=== PATIENT | male | born 1960 | race Caucasian/White ===

== ENCOUNTER 2017-05-24 10:59 | Emergency (ER) | payer BC ==
[~2017-05-24] VITALS: Ht 180.3 cm; Wt 83.9 kg
[2017-05-24 11:09] VITALS: BP_SYST 144
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
--- NOTE | 2017-05-24 11:22 | NUR ---
Dr. Barclay at bedside to assess pt.
--- NOTE | 2017-05-24 12:30 | NUR ---
RETURNED FROM RADIOLOGY, PLACED BACK TO BED #4
--- NOTE | 2017-05-24 13:19 | NUR ---
Patient refused sling. States he is still having 7/10 left shoulder and hip pain, with leg cramps. Dr. Barclay aware, to bedside to revaluate patient.
[2017-05-24 13:48] VITALS: BP_SYST 112
--- NOTE | 2017-05-24 13:48 | NUR ---
Patient given written and verbal discharge instructions and verbalizes understanding. ER MD discussed with patient the results and treatment provided. Patient in stable condition. ID arm band removed. Rx of motrin given. Patient educated on pain management and to follow up with PMD. Pain Scale 2. Opportunity for questions provided and answered.
--- NOTE | 2017-05-25 09:43 | NUR ---
Contacted patient regarding radiology dicrepancy or pneumothorax. Patient states that he will return to ER within 30 min.
[2017-05-25] MEDS ORDERED: LIP10 PO (11:41)
== END 2017-05-24 13:48 | disposition home or self-care (01) ==
LOC: SED 10:59
DX: S43.492A Other sprain of left shoulder joint, initial encounter (principal); S20.212A Contusion of left front wall of thorax, initial encounter; S70.02XA Contusion of left hip, initial encounter; V19.3XXA Pedal cyclist (driver) (passenger) injured in unspecified nontraffic accident, initial encounter; Y93.89 Activity, other specified; Y92.89 Other specified places as the place of occurrence of the external cause; Y99.8 Other external cause status
CPT/HCPCS: 71010; 71100; 73030; 73060-TC; 73090; 99284

== ENCOUNTER 2017-05-25 09:58 | Inpatient (IN) | payer BC ==
[2017-05-25] VITALS (12 sets, daily range): BP systolic 120–145
[~2017-05-25] VITALS: Ht 180.3 cm; Wt 83.9 kg
--- NOTE | 2017-05-25 10:14 | NUR ---
Patient to ER bed 3 to gown for evaluation. Side rails up. Report given to D[address] L[address].
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
--- NOTE | 2017-05-25 10:31 | NUR ---
Dr. Quarles at bedside examining patient, updated on patient condition.
[2017-05-25] MEDS ORDERED: PROPOFOL DRIP 100 ML IV ONE (11:15)
[2017-05-25] MEDS ORDERED: LIP10 PO (11:41)
[2017-05-25] MEDS ORDERED: LIDOCAINE 1% 10 MG/ML, 20 ML MDV INJ ONE (11:45)
[2017-05-25 11:56] LABS: BASOPHILS % (AUTO) 0.3 % (0.0-2.0); EOSINOPHILS % (AUTO) 0.5 % (0.0-4.0); HEMATOCRIT 41.7 % (36-54); HEMOGLOBIN 13.9 g/dL (14.0-18.0); LYMPHOCYTES # (AUTO) 1.4 K/uL (1.0-5.5); LYMPHOCYTES % (AUTO) 19.4 % (20.5-51.5); MEAN CORPUSCULAR HEMOGLOBIN 33 pg (27-31); MEAN CORPUSCULAR HGB CONC 33 % (32-36); MEAN CORPUSCULAR VOLUME 99 fL (79.0-98.0); MONOCYTES # (AUTO) 0.7 K/uL (0.0-1.0); NEUTROPHILS # (AUTO) 5.1 K/uL (1.8-7.7); NEUTROPHILS % (AUTO) 70.8 % (40.0-70.0); PLATELET COUNT (AUTO) 174 K/uL (130-430); RED BLOOD CELL COUNT(AUTO) 4.21 MIL/uL (4.2-6.2); RED CELL DISTRIBUTION WIDTH 11.5 % (9.0-15.0); WHITE BLOOD COUNT (AUTO) 7.2 K/uL (4.8-10.8)
[2017-05-25 12:00] LABS: CALCIUM 9.4 mg/dL (8.4-11.0); CREATININE 0.85 mg/dL (0.55-1.30); POTASSIUM 3.9 mmol/L (3.5-5.1)
--- NOTE | 2017-05-25 12:00 | NUR ---
Medication reconciliation completed with information provided by patient. Any prior medication reconciliation on file was reviewed and corrected.
[2017-05-25 12:05] LABS: ALBUMIN 4.4 g/dL (3.4-4.8); TOTAL BILIRUBIN 0.9 mg/dL (0.0-1.0)
--- NOTE | 2017-05-25 12:30 | NUR ---
Dr. Quarles at bedside chest tube insertion. Patient tolerated well. No signs of distress, vss noted.
[2017-05-25] MEDS ORDERED: ONDANSETRON HCL 4 MG/2 ML VIAL IVP ONE (13:00)
[2017-05-25] MEDS ORDERED: HYDROmorphone 1 MG INJ. 1 MG/ML AMPUL IVP ONE (13:00)
[2017-05-25] MEDS ORDERED: IPRATROPIUM BROM 0.5 MG/2.5 ML VIAL.NEB (ATROVENT) INH PRN (13:15)
[2017-05-25] MEDS ORDERED: ONDANSETRON HCL 4 MG/2 ML VIAL IVP PRN (13:15)
[2017-05-25] MEDS ORDERED: ALBUTEROL SULFATE 0.083% 2.5 MG/3 ML VIAL.NEB INH PRN (13:15)
--- NOTE | 2017-05-25 13:21 | NUR ---
Radiology at bedside.
--- NOTE | 2017-05-25 13:23 | NUR ---
Patient resting quietly. No acute distress noted. Vital signs within normal range.
--- NOTE | 2017-05-25 14:41 | NUR ---
consult for dr. spencer called spoke to juan dialed [phone]
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
[2017-05-25] MEDS: HYDROmorphone 1 MG INJ. 1 MG/ML AMPUL IVP PRN ×4 (14:57→23:08)
--- NOTE | 2017-05-25 15:00 | NUR ---
Patient will be admitted to care of Dr. Houston. Admitted to ICU unit. Will go to room 7. Belongings list completed. Summary report printed. Report will be given at bedside. Transfer to ICU via ACLS protocol. Licensed nurse present. IV present no signs or symptoms of infiltration.
[2017-05-25] MEDS: ALBUTEROL SULFATE 0.083% 2.5 MG/3 ML VIAL.NEB INH SCH ×3 (15:26→23:00)
[2017-05-25] MEDS: IPRATROPIUM BROM 0.5 MG/2.5 ML VIAL.NEB (ATROVENT) INH SCH ×3 (15:26→23:00)
--- NOTE | 2017-05-25 15:30 | NUR ---
C/O PAIN C/O PAIN LEFT CHEST AREA, MEDICATED WITH DILAUDID. HOB ELEVATED FOR COMFORT.
--- NOTE | 2017-05-25 16:00 | NUR ---
RESTING RESTING WITH EYES CLOSED, NO DISTRESS.
[2017-05-25] MEDS ORDERED: HYDROmorphone 1 MG INJ. 1 MG/ML AMPUL IVP PRN (16:45)
--- NOTE | 2017-05-25 17:00 | NUR ---
AWAKE AWAKE, ALERT. COMPLAINING OF PAIN AGAIN. DR. GARSIA WAS CALLED REGARDING INADEQUATE PAIN CONTROL, ORDERS GIVEN.
--- NOTE | 2017-05-25 17:15 | NUR ---
DR. GILBERT HUNT EXAMINED AND ORDERED. TOLD PT HE MIGHT BE HERE 3-4 DAYS. INFORMED THAT PT WAS HAVING PAIN AGAIN, BUT MEDICATION WAS NOT DUE - NEW ORDERS RECEIVED.
--- NOTE | 2017-05-25 18:30 | NUR ---
AT BEDSIDE AT BEDSIDE - BROUGHT FOOD FOR PT. PT C/O PAIN AGAIN, MEDICATED WITH TORADOL.
[2017-05-25] MEDS: KETOROLAC TROMETHAMINE 15 MG VIAL IVP PRN (18:38)
--- NOTE | 2017-05-25 19:15 | NUR ---
REPORT REPORT GIVEN TO ONCOMING SHIFT.
--- NOTE | 2017-05-25 19:30 | NUR ---
TRANSFER OF CARE Received report from AM shift RN via SB[facility]. AAOX4 with at bedside. C/O pain on the left chest. Chest tube in place and secured on the left chest, no leak and drainage noted. IV on the left AC 22g patent with blood return and no infiltration noted. Safety precaution identified, HOB elevated with bed in lowest position. Call light within reach. Will continue to monitor Pt and give PRN pain medication as per MD order.
[2017-05-26] VITALS (17 sets, daily range): BP systolic 120–141
--- NOTE | 2017-05-26 | NUR ---
NOTE Pt is watching TV. N o acute distress at this time. Will continue to monitor. Addendum: 05/26/17 at 0325 by Michael Keller RN NOTE Pt is watching TV. No acute distress at this time. Will continue to monitor.
[2017-05-26] MEDS: HYDROmorphone 1 MG INJ. 1 MG/ML AMPUL IVP PRN ×7 (02:52→21:45)
--- NOTE | 2017-05-26 02:52 | NUR ---
PAIN Patient complaining of pain on the chest tube site. Gave Dilaudid as per MD order. Will continue to monitor Pt.
[2017-05-26] MEDS: ALBUTEROL SULFATE 0.083% 2.5 MG/3 ML VIAL.NEB INH SCH ×5 (03:00→23:00)
[2017-05-26] MEDS: IPRATROPIUM BROM 0.5 MG/2.5 ML VIAL.NEB (ATROVENT) INH SCH ×5 (03:00→23:00)
--- NOTE | 2017-05-26 06:30 | NUR ---
PAIN Patient complaining of pain on the chest tube site. Gave Dilaudid as per MD order. Will continue to monitor Pt.
[2017-05-26 06:44] LABS: BASOPHILS % (AUTO) 0.2 % (0.0-2.0); EOSINOPHILS % (AUTO) 0.3 % (0.0-4.0); HEMATOCRIT 38.8 % (36-54); HEMOGLOBIN 13.2 g/dL (14.0-18.0); LYMPHOCYTES # (AUTO) 1.3 K/uL (1.0-5.5); LYMPHOCYTES % (AUTO) 15.1 % (20.5-51.5); MEAN CORPUSCULAR HEMOGLOBIN 34 pg (27-31); MEAN CORPUSCULAR HGB CONC 34 % (32-36); MEAN CORPUSCULAR VOLUME 99 fL (79.0-98.0); MONOCYTES # (AUTO) 0.7 K/uL (0.0-1.0); NEUTROPHILS # (AUTO) 6.5 K/uL (1.8-7.7); NEUTROPHILS % (AUTO) 76.4 % (40.0-70.0); PLATELET COUNT (AUTO) 166 K/uL (130-430); RED CELL DISTRIBUTION WIDTH 11.4 % (9.0-15.0); WHITE BLOOD COUNT (AUTO) 8.5 K/uL (4.8-10.8)
--- NOTE | 2017-05-26 07:18 | NUR ---
ENDORSEMENT Gave report to oncoming shift RN.
--- NOTE | 2017-05-26 08:00 | NUR ---
ASSUMPTION OF CARE: RECEIVED PT A/A/OX4, DX:INADEQUATE VENTILATION, R/T PNEUMOTHORAX, CHEST TUBE INSERTION TO LEFT CHEST WALL, PATENT, WITH BUBBLING, LEFT UPPER LOBE BREATH SOUNDS ARE DIMINISHED, BREATHING UNLABORED, AFEBRILE, IV SITE INTACT, PATENT, NO REDNESS OR SWELLING, ORIENTED TO UNIT, CALL LIGHT PLACED WITHIN REACH, WILL CONT' TO MONITOR AND ASSESS.
--- NOTE | 2017-05-26 08:30 | NUR ---
VISIT: AT BEDSIDE FOR ASSESSMENT OF PT, NEW ORDERS GIVEN, WILL CONT' TO MONITOR AND ASSESS.
--- NOTE | 2017-05-26 09:30 | NUR ---
VISIT: AT BEDSIDE FOR ASSESSMENT OF PT, NEW ORDERS GIVEN, WILL CONT' TO MONITOR AND ASSESS.
[2017-05-26] MEDS ORDERED: ENOXAPARIN SODIUM 40 MG/0.4 ML SYRINGE SUBCUT SCH (09:45)
[2017-05-26] MEDS ORDERED: ENOXAPARIN SODIUM 40 MG/0.4 ML SYRINGE SUBCUT ONE (11:15)
--- NOTE | 2017-05-26 12:44 | NUR ---
TRANSFER RECEIVED PT FROM ICU AAOX4, AT BEDSIDE. CHEST TUBE TO LT CHEST WALL CONNECTED TO LOW SUCTION WITH GOOD SEAL NOTED. TOLERATING ON 2L NC, NO SOB NOTED. PT STATES PAIN IS 4/10 AT THIS TIME, WHICH IS TOLERABLE FOR HIM. PT ORIENTED TO ROOM AND UNIT. BED IN LOWEST POSITION WITH SIDE RAILS UP X2 AND CALL LIGHT WITHIN REACH. ENCOURAGED TO USE CALL LIGHT FOR ASSISTANCE. VERBALIZED UNDERSTANDING.
--- NOTE | 2017-05-26 12:45 | NUR ---
TRANSFER: PT TRANSFERRED TO [facility] RM#102-A, REPORT GIVEN TO NURSE APOLLO RN, FAMILY NOTIFIED, ACCOMPANIED AT BEDSIDE, WILL CONT' WITH PLAN OF CARE.
[2017-05-26] MEDS: KETOROLAC TROMETHAMINE 15 MG VIAL IVP PRN (13:15)
--- NOTE | 2017-05-26 14:31 | NUR ---
ROUNDS PT SITTING UP IN BED IN NO ACUTE DISTRESS. CT TO LT CHEST WALL WITH GOOD SEAL, (+) BUBBLING NOTED. PT DENIES ANY SOB. STATES PAIN IS 5/10 BUT DOES NOT WANT DILAUDID AT THIS TIME. CALL LIGHT WITHIN REACH. ENCOURAGED TO USE CALL LIGHT FOR ASSISTANCE. VERBALIZED UNDERSTANDING.
--- NOTE | 2017-05-26 15:46 | NUR ---
ROUNDS PT SITTING UP IN BED WATCHING TV. MEDICATED FOR PAIN 05/07. CT TO LEFT CHEST WALL WITH BUBBLING NOTED. WILL CONTINUE TO MONITOR
--- NOTE | 2017-05-26 18:29 | NUR ---
CLOSING NOTE PT LYING IN BED WATCHING TV. STATES PAIN IS 4/10 AT THIS TIME BUT HE DOES NOT WANT ANY PAIN MEDICATION. CT TO LEFT CHEST WALL WITH (+) BUBBLING NOTED. NO SOB NOTED ON O2 2LNC. CALL LIGHT WITHIN REACH. PT ENCOURAGED TO USE CALL LIGHT FOR ASSISTANCE. WILL ENDORSE TO NOC SHIFT
--- NOTE | 2017-05-26 19:34 | NUR ---
PM NOTES PT SITTING UP IN BED, PAIN MEDICATION GIVEN FOR SEVERE PAIN NEAR CHEST TUBE SITE. CHEST TUBE SITE ASSESSED, NO AIR LEAK. UPDATED PT WITH PLAN OF CARE, REMINDED PT TO CALL FOR ASSISTANCE, PT STATED HE WILL. BED IN LOW POSITION, CALL LIGHT WITHIN REACH.
--- NOTE | 2017-05-26 21:45 | NUR ---
pain Dilaudid 1mg IVP administered for severe pain. educated pt on possible side effects. will continue to monitor. fall risk precautions in place, call light within reach.
[2017-05-27] MEDS: HYDROmorphone 1 MG INJ. 1 MG/ML AMPUL IVP PRN (01:16)
--- NOTE | 2017-05-27 01:16 | NUR ---
pain pt complained of severe pain near chest tube, pain medication administered by ARIANA Arevalo. pt aware to call for assistance.
[2017-05-27] MEDS: IPRATROPIUM BROM 0.5 MG/2.5 ML VIAL.NEB (ATROVENT) INH SCH ×5 (03:00→19:50)
[2017-05-27] MEDS: ALBUTEROL SULFATE 0.083% 2.5 MG/3 ML VIAL.NEB INH SCH ×5 (03:00→19:49)
--- NOTE | 2017-05-27 03:41 | NUR ---
watching tv pt watching tv, brought pt a warm tea. all needs being met. bed in low position, call light within reach.
[2017-05-27 04:37] VITALS: BP_SYST 134
[2017-05-27] MEDS: KETOROLAC TROMETHAMINE 15 MG VIAL IVP PRN ×3 (06:22→19:53)
--- NOTE | 2017-05-27 06:46 | NUR ---
pain/closing notes pt received Toradol IVP for moderate pain. reminded pt to call for assistance, pt stated he will. all needs met throughout shift. will endorse care to oncoming nurse, fall risk precautions in place, call light within reach.
[2017-05-27 07:31] LABS: BASOPHILS % (AUTO) 0.5 % (0.0-2.0); EOSINOPHILS # (AUTO) 0.1 K/uL (0.0-0.4); EOSINOPHILS % (AUTO) 1.8 % (0.0-4.0); HEMATOCRIT 36.9 % (36-54); HEMOGLOBIN 12.6 g/dL (14.0-18.0); LYMPHOCYTES # (AUTO) 1.7 K/uL (1.0-5.5); LYMPHOCYTES % (AUTO) 23.1 % (20.5-51.5); MEAN CORPUSCULAR HEMOGLOBIN 34 pg (27-31); MEAN CORPUSCULAR HGB CONC 34 % (32-36); MEAN CORPUSCULAR VOLUME 98 fL (79.0-98.0); MONOCYTES # (AUTO) 0.7 K/uL (0.0-1.0); MONOCYTES % (AUTO) 9.4 % (1.7-9.3); NEUTROPHILS # (AUTO) 4.8 K/uL (1.8-7.7); NEUTROPHILS % (AUTO) 65.2 % (40.0-70.0); PLATELET COUNT (AUTO) 173 K/uL (130-430); RED BLOOD CELL COUNT(AUTO) 3.76 MIL/uL (4.2-6.2); RED CELL DISTRIBUTION WIDTH 11.2 % (9.0-15.0); WHITE BLOOD COUNT (AUTO) 7.3 K/uL (4.8-10.8)
[2017-05-27 08:00] VITALS: BP_SYST 138
--- NOTE | 2017-05-27 08:00 | NUR ---
OPENING NOTE PATIENT NOTED TO HAVE DISCONNECTED HIMSELF FROM WALL SUCTION AND IS AMBULATING TO RESTROOM WHILE HOLDING HIS CHEST TUBE EQUIPMENT. WHO IS AN RN AT ANOTHER FACILITY IS HELPING HIM.
[2017-05-27] MEDS: ENOXAPARIN SODIUM 40 MG/0.4 ML SYRINGE SUBCUT SCH (09:11)
--- NOTE | 2017-05-27 10:00 | NUR ---
PATIENT IS RESTING COMFORTABLY. REPORTS MILD PAIN, HOWEVER STATES BECAUSE HE IS UNABLE TO HAVE A BM HE DOES NOT WANT TO CONTINUE TAKING NARCOTICS. PATIENT IS NOT IN GOWN AND CHEST TUBE AND BRUISING TO LEFT CHEST WALL/ABDOMEN IS OBVIOUS. STEADY AMBULATION
--- NOTE | 2017-05-27 11:00 | NUR ---
DR HUNT IN TO SEE PATIENT, CHEST TUBE TO GRAVITY, OOTA, EXPLAINED TO PATIENT IMPORTANCE OF REPORTING ANY INCREASE IN DISCOMFORT, ANXIETY OR SHORTNESS OF BREATH IMMEDIATELY. PER DR HUNT'S ORDERS STAT CXR AND CALL HER W RESULTS IF PATIENT BECOMES SOB.
[2017-05-27 12:34] VITALS: BP_SYST 138
--- NOTE | 2017-05-27 13:00 | NUR ---
PATIENT MEDICATED WITH TORADOL FOR PAIN.
[2017-05-27 16:36] VITALS: BP_SYST 130
--- NOTE | 2017-05-27 19:15 | NUR ---
CHANGE OF SHIFT: pt. not in the room on change of shift. pt. ambulating with his .
[2017-05-27 19:59] VITALS: BP_SYST 141
--- NOTE | 2017-05-27 20:00 | NUR ---
NOTES: Addendum: 05/27/17 at 2349 by Kia Dozier RN pt. in bed already, on high fowlers position, left chest tube to pleur evac with some serous drainage. chest tube site dressing intact.pt. instructed on deep breathing exercise. medicated with Toradol for c/o pain on left chest. on room air.
--- NOTE | 2017-05-27 21:33 | NUR ---
NOTES: pt. resting when checked, on high fowlers position.noted relief from pain. Addendum: 05/28/17 at 0424 by Kia Dozier RN pt. skin on left lower side around the flank area with big bruise and on the lateral upper thigh.
--- NOTE | 2017-05-27 23:49 | NUR ---
NOTES: pt. resting comfortably. in no acute distress.
[2017-05-28] VITALS (7 sets, daily range): BP systolic 135–145
--- NOTE | 2017-05-28 01:30 | NUR ---
NOTES: pt. awakened, wants pain med, offered other pain med but wants Toradol instead, not quite due and pt. informed.
[2017-05-28] MEDS: KETOROLAC TROMETHAMINE 15 MG VIAL IVP PRN ×2 (02:03→08:51)
--- NOTE | 2017-05-28 02:05 | NUR ---
NOTES: pt. medicated for c/o left side chest pain , chest tube site. keep HOB elevated. been to the restroom 2x per pt.
--- NOTE | 2017-05-28 02:30 | NUR ---
NOTES: checked pt. noted some relief, watching TV.
--- NOTE | 2017-05-28 04:30 | NUR ---
NOTES: condition unchanged, been sleeping on sitting position in bed.
--- NOTE | 2017-05-28 06:30 | NUR ---
CLOSING NOTES: pt. already awake watching TV, no complaints manifested. chest tube drained @ 50 cc serous fluid. CXR was just done. needs further observation. call light within reach.
[2017-05-28] MEDS: ALBUTEROL SULFATE 0.083% 2.5 MG/3 ML VIAL.NEB INH SCH ×3 (07:20→15:00)
[2017-05-28] MEDS: IPRATROPIUM BROM 0.5 MG/2.5 ML VIAL.NEB (ATROVENT) INH SCH ×3 (07:20→15:00)
--- NOTE | 2017-05-28 07:20 | NUR ---
endorsed pt. to incoming shift with nurse Petit. condition stable, left chest tube intact.
--- NOTE | 2017-05-28 08:10 | NUR ---
Opening Note Report received form [address]. Patient is in stable condition and is currently resting in bed. IV is on the LAC 20g currently saline locked. Chest tube is on the left chest and is to gravity. Call light is within reach and bed is in low position. Will continue to monitor.
[2017-05-28] MEDS: ENOXAPARIN SODIUM 40 MG/0.4 ML SYRINGE SUBCUT SCH (08:55)
--- NOTE | 2017-05-28 10:20 | NUR ---
Rounds Patient is resting in bed. call light is within reach.
--- NOTE | 2017-05-28 12:30 | NUR ---
Rounds Patient is resting in bed. No signs of distress noted.
--- NOTE | 2017-05-28 14:30 | NUR ---
RN Noted Chest x-ray was done. Will follow up with the results.
--- NOTE | 2017-05-28 15:20 | NUR ---
PAGED PAGED LANE CALDERON AT [phone] SPOKE WITH EXCHANGE.
--- NOTE | 2017-05-28 15:45 | NUR ---
Chest tube removal Dr. Suarez removed the patient's chest tube. Patient tolerated well. A gauze dressing was applied.
--- NOTE | 2017-05-28 16:30 | NUR ---
Rounds Will follow up with Dr. Houston for a dc order.
--- NOTE | 2017-05-28 17:45 | NUR ---
Transition of Care Note All transition of care instructions were provided to the patient. He verbalized understanding. IV and ID band were removed. Patient left the unit in stable condition accompanied by staff and family.
== END 2017-05-28 17:21 | disposition home or self-care (01) | DRG 201 ==
LOC: SED 09:58 → SIC 13:08 → SMU 05-26 12:30
PROVIDERS: ADMIT Internal Medicine Hospice and Palliative Medicine; ATTEND Internal Medicine Hospice and Palliative Medicine
PROC: 0W9B30Z Drainage of Left Pleural Cavity with Drainage Device, Percutaneous Approach (ICD-10-PCS; principal; 2017-05-25)
DX: S27.0XXA Traumatic pneumothorax, initial encounter (principal); W18.39XA Other fall on same level, initial encounter; Y92.89 Other specified places as the place of occurrence of the external cause; Y99.8 Other external cause status; Y93.55 Activity, bike riding
CPT/HCPCS: 36415; 71010; 71250-TC; 80053; 85025; 87081; 93005; 94640; 94760; 96374; 96375; 99285; J1170; J1650; J1885; J2001; J2405; J2704